=== PATIENT | female | born 1960 | race Caucasian/White ===

== ENCOUNTER 2023-06-08 21:28 | Emergency (ER) | payer MEDICAID ==
[~2023-06-08] VITALS: Ht 157.5 cm; Wt 75.0 kg
[2023-06-08] MEDS ORDERED: NAPR-1154 PO (22:59)
[2023-06-08] MEDS ORDERED: AMOX-117 PO (22:59)
[2023-06-08] MEDS ORDERED: amox tr/potassium clavulanate 875/125mg TAB PO ONE (23:00)
[2023-06-08] MEDS ORDERED: HYDROcodone/acetaminophen 5mg/325mg tablet PO ONE (23:00)
[2023-06-08 23:36] VITALS: BP 178/84; PULSE 92; RESP 20; TEMP 98.5; O2SAT 96
== END 2023-06-08 23:45 | disposition home or self-care (01) ==
LOC: ER 21:29
DX: K04.7 Periapical abscess without sinus (principal); H92.02 Otalgia, left ear
CPT/HCPCS: 99283

== ENCOUNTER 2025-03-03 22:13 | Emergency (ER) | payer MEDICAID ==
[~2025-03-03] VITALS: Ht 157.5 cm; Wt 90.0 kg
[~2025-03-03 22:13] MED LIST: NAPR-1154 PO
[2025-03-03] MEDS ORDERED: LISI10TA27 PO (22:58)
--- NOTE | 2025-03-03 22:59 | Physician Documentation ---
History of Present Illness ~ Chief Complaint: Medical Clearance Stated Complaint: MED CLEARANCE Time Seen by MD: 22:21 Primary Medical Doctor: NONE Source: patient Mode of Arrival: POV Exam Limitations: no limitations HPI Patient presents for medical clearance secondary to high blood pressure. She denies past medical history. Her blood pressure is significantly elevated. Denies head neck or back pain. Tetanus within 5 years?: No Medication Reconciliation Allergies: Coded Allergies: No Known Allergies (Unverified , 06/08/23) Scheduled Lisinopril (Lisinopril), 1 TAB PO DAILY Naproxen (Naprosyn), 1 TAB PO Q12H Past Medical History Smoking Status: Current every day smoker Review of Systems ROS Review of systems negative except documented in HPI. Physical Exam Vital Signs: RN Vital Signs have been reviewed: Yes, Temperature: 97.1, Source: Temporal, Heart Rate: 85, Respiratory Rate: 14, BP: 208/109, Pulse Oximetry: 98, Weight: 90.000 Oxygen Flow Rate: 0 Pulse Oximetry Reflects: adequate oxygenation Physical Exam General: Awake, alert, oriented. No apparent distress Respiratory: Lungs are clear to auscultation bilaterally. No respiratory distress. Chest: Normal shape and size. No accessory muscle use. Cardiovascular: Regular rate and rhythm. S1-S2. No murmur, gallop, rub. Extremities: No lower extremity edema, cyanosis or clubbing. Neurologic: Alert and oriented x4. Nonfocal Psychiatric: Normal mood and affect. Skin: Normal color. Warm and dry. Progress Results/Orders Results/Orders Completed Orders - SUZANNE THOMAS NP Hydralazine Tablet (Apresoline 10mg Tabl (03/03/25 23:00) Medications Received in ER Medications (Trade) Dose Ordered Sig/Soren Route PRN Reason Start Time Stop Time Status Last Admin Dose Admin (Apresoline 10mg tablet) 20 mg ONCE ONCE PO 03/03/25 23:00 03/03/25 23:01 DC 03/03/25 23:02 20 MG Vital Signs 03/03/25 03/03/25 03/03/25 03/03/25 22:25 22:36 23:02 23:26 Temp 97.1 98.6 Pulse 85 77 78 Resp 14 18 B/P (MAP) 177/102 177/102 (127) 150/64 (92) 208/109 (142) Pulse Ox 98 99 O2 Flow Rate 0 Medical Decision Making Findings Patient presents secondary to high blood pressure. Not quite meeting criteria for hypertensive urgency. Treated with p.o. hydralazine. Pressure did come down. Education was provided. She was given a prescription for lisinopril. She will follow up with her primary care provider for which she does have access. She is otherwise well-appearing. Does not have any symptoms of headache or any other neurologic concerns. Being discharged to correction in stable condition. Departure Time of Disposition: 22:56 Impression: Primary Impression: Hypertension Qualified Codes: I10 - Essential (primary) hypertension Condition: Stable Discharge Instructions: Hypertension, Adult Additional Instructions: Pressure is significantly elevated today. This is consistent with primary hypertension. As we discussed I highly recommend that you follow up with your primary care provider. I have started you on a blood pressure medication. Recommend that you monitor your blood pressure at home. Return to the emergency department for new or worsening symptoms. From a medical standpoint you are cleared for incarceration. Referrals: NO PRIMARY CARE PROVIDER (PCP) Prescriptions Lisinopril (LISINOPRIL) 10 Mg Tablet 1 TAB PO DAILY for 30 Days, #30 TAB 0 Refills Prov: SUZANNE THOMAS NP 03/03/25 Education Educated: Patient Educated regarding: diagnosis, treatment, need for follow up Signature Scribe Signature: No scribe Attestation: The note accurately reflects work and decisions made by me.Suzanne Thomas - YENNI 03/04/25 00:05 This note was created with the assistance of voice recognition software whereby errors in grammar, syntax, and/or spelling may have occurred despite active proofreading efforts by the author. Please do not hesitate to contact the wilfrido garcia for clarification or for questions regarding the content of this document. SUZANNE THOMAS NP Mar 03, 2025 22:59
[2025-03-03 23:26] VITALS: BP 150/64; PULSE 78; RESP 18; TEMP 98.6; O2SAT 99
== END 2025-03-03 23:51 ==
LOC: ER 22:14
DX: I10 Essential (primary) hypertension (principal); F17.200 Nicotine dependence, unspecified, uncomplicated
CPT/HCPCS: 99283